=== PATIENT | female | born 1940 | race Caucasian/White ===

== ENCOUNTER 2019-07-12 17:19 | Emergency (ER) | payer OTHER ==
[~2019-07-12] VITALS: Ht 167.6 cm; Wt 78.9 kg
--- NOTE | 2019-07-12 17:32 | NUR ---
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 TO ER BED 11, HOOKED TO MONITOR, CHANGED TO HOSPITAL GOWN, PATIENT AOX4 , BREATHING EVEN AND UNLABORED, AWAITING MD RANGEL.
--- NOTE | 2019-07-12 17:36 | NUR ---
DR MENDOZA AT BEDSIDE
[2019-07-12] MEDS ORDERED: HYDROCODONE/APAP 10/325MG 1 EA TABLET ONE (18:19)
[2019-07-12 18:21] LABS: BASOPHILS % (AUTO) 0.4 % (0.0-2.0); EOSINOPHILS % (AUTO) 1.3 % (0.0-6.0); HEMATOCRIT 35 % (33-45); HEMOGLOBIN 11.7 g/dL (11.5-14.8); LYMPHOCYTES # (AUTO) 1.6 /CMM (0.8-4.8); LYMPHOCYTES % (AUTO) 27.1 % (20.0-44.0); MEAN CORPUSCULAR HGB CONC 33 g/dl (31.0-36.0); MEAN CORPUSCULAR VOLUME 101 fL (82-100); MONOCYTES # (AUTO) 0.5 /CMM (0.1-1.30); MONOCYTES % (AUTO) 8.3 % (2.0-12.0); NEUTROPHILS # (AUTO) 3.6 /CMM (1.8-8.9); NEUTROPHILS % (AUTO) 62.9 % (43.0-81.0); PLATELET COUNT (AUTO) 196 /CMM (150-450); RED BLOOD CELL COUNT(AUTO) 3.52 MIL/uL (4.0-5.2); WHITE BLOOD COUNT (AUTO) 5.8 K/uL (4.3-11.0)
[2019-07-12] MEDS ORDERED: HYDROCODONE/APAP 10/325MG 1 EA TABLET PO ONE (18:30)
--- NOTE | 2019-07-12 18:33 | NUR ---
PRODUCTION SUPPORT DEVELOPER AT BEDSIDE
[2019-07-12 18:35] LABS: CALCIUM, SERUM 8.9 mg/dL (8.5-10.1); CARBON DIOXIDE 24 mmol/L (21-32); CHLORIDE 107 mmol/L (98-107); CREATININE 1.7 mg/dL (0.6-1.3); GLUCOSE 114 mg/dL (74-106); POTASSIUM 3.9 mmol/L (3.5-5.1); SODIUM SERUM 141 mmol/L (136-145); UREA NITROGEN, BLOOD 32 mg/dL (7-18)
--- NOTE | 2019-07-12 18:57 | NUR ---
CALLED LA [facility]THO DESILVERIZER IS ANGELIKA.
--- NOTE | 2019-07-12 19:21 | NUR ---
REPORT GIVEN TO LUIS BENDER FOR YAHAIRA
[2019-07-12] MEDS ORDERED: MORPHINE SULFATE INJ 2 MG/ML DISP.SYRIN IV ONE (20:00)
[2019-07-12] MEDS ORDERED: KETOROLAC TROMETHAMINE INJ 30 MG/ML VIAL IV ONE (20:00)
--- NOTE | 2019-07-12 20:02 | NUR ---
FOX CATHETER INSERTED 16 FR. USING ASEPTIC TECHNIQUE
[2019-07-12] MEDS ORDERED: KETOROLAC TROMETHAMINE INJ 30 MG/ML VIAL ONE (20:18)
[2019-07-12] MEDS ORDERED: MORPHINE SULFATE INJ 4 MG/ML DISP.SYRIN ONE (20:18)
--- NOTE | 2019-07-12 21:12 | NUR ---
Call from Naima Crane Engineer. Pt accepted by Dr Bellamy. Bed 1010-A. # for report [phone]
--- NOTE | 2019-07-12 21:49 | NUR ---
[facility] eta [id number]
--- NOTE | 2019-07-12 21:52 | NUR ---
REPORT GIVEN TO QUAN BENDER FOR YAHAIRA.
--- NOTE | 2019-07-12 22:10 | NUR ---
REPORT GIVEN TO TRANSPORT TEAM FOR TRANSPORT AND YAHAIRA.
[2019-07-12 22:29] VITALS: BP 143/79
== END 2019-07-12 22:29 | disposition short-term general hospital (02) ==
LOC: ER 17:21
DX: S72.124A Nondisplaced fracture of lesser trochanter of right femur, initial encounter for closed fracture (principal); S73.004A Unspecified dislocation of right hip, initial encounter; I10 Essential (primary) hypertension; Z96.641 Presence of right artificial hip joint; Z98.890 Other specified postprocedural states; W18.39XA Other fall on same level, initial encounter; Y93.89 Activity, other specified; Y92.89 Other specified places as the place of occurrence of the external cause; Y99.8 Other external cause status
CPT/HCPCS: 36415; 51702; 73502; 80048; 85025; 85730; 86850; 87081; 96374; 96375; 99285; J1885; J2270